=== PATIENT | male | born 1970 ===

== ENCOUNTER → 2022-03-09 11:11 | Outpatient (CLI) | payer SELFPAY ==
[2022-03-09 20:21] LABS: COVID19 - ORCAS (NP or Nasal) Negative (Negative)
== END ==
PROVIDERS: PCP Family Medicine; Visit Provider Family Medicine
DX: Z20.822 Contact with and (suspected) exposure to COVID-19 (principal); Z01.812 Encounter for preprocedural laboratory examination
CPT/HCPCS: U0003